=== PATIENT | female | born 1955 | race African-American/Black ===

== ENCOUNTER 2018-11-21 10:25 | Emergency (ER) | payer MEDICARE, MEDICAID ==
[2018-11-21 11:10] LABS: #Basophils 0.1 thou/uL (0.0-0.2); #Eosinphils 0.4 thou/uL (0.0-0.7); #Lymphocytes 2.6 thou/uL (1.20-3.40); #Monocytes 0.6 thou/uL (0.11-0.59); #Neutrophils 4.3 thou/uL (1.40-6.50); %Eosinophils 5.6 % (0.0-10.0); %Lymphocytes 32.4 % (21.0-51.0); %Monocytes 7.7 % (0.0-10.0); %Neutrophils 53.3 % (42.0-75.0); Hemoglobin 11.1 g/dL (12.0-16.0); Mean Corpuscular HGB CONC 31.7 g/dL (32.0-36.0); Mean Corpuscular Hemoglobin 28.6 pg (27.0-31.0); Mean Corpuscular Volume 90.3 fL (78.0-98.0); Mean Platelet Volume 7.6 fL (7.4-10.4); Platelet Count 196 thou/uL (130-400); RBC Distribution Width 15.2 % (11.5-14.5); Red Blood Cell (RBC) Count 3.87 mill/uL (4.20-5.40)
[2018-11-21 11:34] LABS: ALT (SGPT) Less than 7 U/L (8-55); AST (SGOT) 7 U/L (5-34); Albumin 3.6 g/dL (3.4-4.8); Alkaline Phosphatase 64 U/L (40-150); Anion Gap 9 mmol/L (10-20); BUN (Urea Nitrogen) 15 mg/dL (9.8-20.1); Bilirubin, Total 0.3 mg/dL (0.2-1.2); Calc. Creatinine Clearance 0 mL/min (70-130); Calcium 9.7 mg/dL (7.8-10.44); Carbon Dioxide 28 mmol/L (23-31); Chloride 108 mmol/L (98-107); Estimated GFR-MDRD 74; Glucose 97 mg/dL (80-115); Potassium 3.8 mmol/L (3.5-5.1); Protein, Total 6.6 g/dL (6.0-8.3); Sodium 141 mmol/L (136-145)
--- NOTE | 2018-11-21 12:30 | ULT ---
EXAM: Right upper extremity venous ultrasound HISTORY: Right upper extremity pain and edema after a dog bite on October 10, 2018 COMPARISON: None TECHNIQUE: Multiplanar grayscale and color Doppler images were obtained in a right upper extremity ve nous ultrasound. Spectral analysis of the Doppler waveforms were performed. FINDINGS: The internal jugular vein demonstrates normal compression and flow without evidence of thrombus. The subclavian vein demonstrates normal flow and augmentation without evidence of thrombus. The axillary and brachial veins demonstrate normal compression, flow, and augmentation without eviden ce of thrombus. The venous structures distal to the elbow are patent without thrombus. The cephalic and basilic veins are patent. IMPRESSION: No evidence of DVT.
[2018-11-21] MEDS ORDERED: HYDROcodone/Acetaminophen 10/325 mg Tablet ONE (12:31)
== END 2018-11-21 14:10 | disposition home or self-care (01) ==
LOC: ERS 10:25
DX: M79.89 Other specified soft tissue disorders (principal); I10 Essential (primary) hypertension; M19.90 Unspecified osteoarthritis, unspecified site; Z87.891 Personal history of nicotine dependence; Z79.1 Long term (current) use of non-steroidal anti-inflammatories (NSAID); Z79.899 Other long term (current) drug therapy
CPT/HCPCS: 36415; 80053; 83605; 85025

== ENCOUNTER 2018-12-24 23:55 | Observation (INO) | payer MEDICARE, MEDICAID ==
[2018-12-25 01:37] LABS: #Basophils 0.1 thou/uL (0.0-0.2); #Eosinphils 0.1 thou/uL (0.0-0.7); #Monocytes 0.8 thou/uL (0.11-0.59); #Neutrophils 7.6 thou/uL (1.40-6.50); %Basophils 0.6 % (0.0-1.0); %Eosinophils 1.3 % (0.0-10.0); %Monocytes 6.6 % (0.0-10.0); %Neutrophils 65.5 % (42.0-75.0); Hemoglobin 11.1 g/dL (12.0-16.0); Mean Corpuscular HGB CONC 34.7 g/dL (32.0-36.0); Mean Corpuscular Hemoglobin 30.5 pg (27.0-31.0); Mean Platelet Volume 8.3 fL (7.4-10.4); Platelet Count 212 thou/uL (130-400); RBC Distribution Width 15.1 % (11.5-14.5); Red Blood Cell (RBC) Count 3.63 mill/uL (4.20-5.40); White Blood Cell (WBC) Count 11.5 thou/uL (4.8-10.8)
[2018-12-25 01:57] LABS: ALT (SGPT) 18 U/L (8-55); AST (SGOT) 15 U/L (5-34); Albumin 3.6 g/dL (3.4-4.8); Alkaline Phosphatase 68 U/L (40-150); Anion Gap 15 mmol/L (10-20); BUN (Urea Nitrogen) 28 mg/dL (9.8-20.1); Bilirubin, Total 0.2 mg/dL (0.2-1.2); Calc. Creatinine Clearance 0 mL/min (70-130); Calcium 9.4 mg/dL (7.8-10.44); Carbon Dioxide 20 mmol/L (23-31); Chloride 107 mmol/L (98-107); Estimated GFR-MDRD 50; Globulin 3.5 g/dL (2.4-3.5); Glucose 112 mg/dL (80-115); Potassium 4.2 mmol/L (3.5-5.1); Protein, Total 7.1 g/dL (6.0-8.3); Sodium 138 mmol/L (136-145)
[2018-12-25] MEDS ORDERED: Bisacodyl 5 MG TAB PO PRN (03:23)
[2018-12-25] MEDS ORDERED: Acetaminophen 325 MG TAB PO PRN (03:23)
[2018-12-25] MEDS ORDERED: Senokot S 8.6-50 MG TAB PO PRN (03:23)
[2018-12-25] MEDS: Sodium Chloride 0.9% 1,000 ML IV SCH (05:28)
[2018-12-25 05:31] LABS: #Eosinphils 0.1 thou/uL (0.0-0.7); #Monocytes 0.5 thou/uL (0.11-0.59); #Neutrophils 4.3 thou/uL (1.40-6.50); %Basophils 0.5 % (0.0-1.0); %Eosinophils 1.4 % (0.0-10.0); %Lymphocytes 38.1 % (21.0-51.0); %Monocytes 6.1 % (0.0-10.0); %Neutrophils 53.9 % (42.0-75.0); Hemoglobin 11.5 g/dL (12.0-16.0); Mean Corpuscular Hemoglobin 29.4 pg (27.0-31.0); Mean Corpuscular Volume 89.1 fL (78.0-98.0); Mean Platelet Volume 8.8 fL (7.4-10.4); Platelet Count 224 thou/uL (130-400); RBC Distribution Width 15.2 % (11.5-14.5); Red Blood Cell (RBC) Count 3.91 mill/uL (4.20-5.40); White Blood Cell (WBC) Count 7.9 thou/uL (4.8-10.8)
[2018-12-25 05:47] LABS: Anion Gap 14 mmol/L (10-20); BUN (Urea Nitrogen) 25 mg/dL (9.8-20.1); Calc. Creatinine Clearance 49 mL/min (70-130); Calcium 9.4 mg/dL (7.8-10.44); Carbon Dioxide 20 mmol/L (23-31); Chloride 109 mmol/L (98-107); Estimated GFR-MDRD 70; Glucose 101 mg/dL (80-115); Potassium 4.3 mmol/L (3.5-5.1); Sodium 139 mmol/L (136-145)
--- NOTE | 2018-12-25 05:49 | PDOC.EVN ---
Event Note - Event Note Event Note: spoke with nurse who stated that pt is taking norvac, hctz for her bp. When i interviewed the pt, her brother stated that she takes clonidine bid. I am not sure if she is taking too many bp meds.
[2018-12-25 05:50] LABS: Troponin I Less than 0.010 ng/mL (< 0.028)
--- NOTE | 2018-12-25 05:58 | HP ---
CHIEF COMPLAINT: Dizziness, lightheadedness. HISTORY OF PRESENT ILLNESS: The patient is a 63-year-old female with past medical history of hypertension, who initially presented to the hospital with dizziness and was found to be hypotensive. The patient stated that she felt dizzy earlier yesterday and she tried to get up where she fell, but did not pass out. At this time, her brother took her blood pressure, which was 65/50. At this time, EMS was called for further evaluation. The patient states that she takes clonidine 0.1 mg b.i.d. as a scheduled dose and she states that she has been on this for a long period of time from her pain management doctor. She denies any fevers or chills, any nausea, vomiting, or diarrhea. The patient states that she recently was attacked by a pit bull. This was in September and had to be taken to [facility] for extensive surgery. She at that time stayed there in the hospital for about 3 weeks and then was discharged home. She then followed up with her doctor at [facility] on December 11 and was told that the wound did not appear to be infected, so at this time she was asked to come in to the hospital at [facility]. The patient states that she had two I and D of her right arm and initially they thought it was infected; however, her blood cultures were normal. This is according to the patient. She was sent home with oral antibiotics. She does not recall the name of the antibiotics. She denies any recent fevers or chills, any recent nausea, vomiting, or diarrhea. She currently has not set up any wound care. She states that her arm is dressed by her brother and she is supposed to get wound care and also PT for her right hand. REVIEW OF SYSTEMS: All negative except for the ones mentioned above in the HPI. PAST MEDICAL HISTORY: She has a history of hypertension. She has a history of arthritis, unclear about that. FAMILY HISTORY: No history of heart disease or cancer. SOCIAL HISTORY: She is a former drug user and also a former smoker. Denies any alcohol use. She lives with her brother and she is a full code. PAST SURGICAL HISTORY: She has had extensive surgery on her right arm, left hand for graft and her left thigh. She also has had a cyst removed in the back of the head in 2016. ALLERGIES: SHE HAS NO KNOWN DRUG ALLERGIES. MEDICATIONS: Again, she does not have a list of her medications. PHYSICAL EXAMINATION: VITAL SIGNS: Temperature of 98.8, respiratory rate 18, pulse 61, and blood pressure 100/62. GENERAL: She is awake, alert, and oriented x3. Does not appear in distress. HEENT: Normocephalic, atraumatic. No lymphadenopathy noted. Pupils are equal and reactive to light. CV: S1 and S2 present. No murmurs, rubs, or gallops. LUNGS: Clear to auscultation. No rhonchi or wheezes noted. ABDOMEN: Soft and nontender. Bowel sounds are present x2. EXTREMITIES: No edema. Pedal pulses are present x2. NEUROVASCULAR: No focal deficits noted. SKIN: She has a wound that is dressed in her right hand. She is really unable to move her right fingers, which is at baseline according to her. On her left arm, she does have a significant wound. Also, she has a significant wound to her left thigh area. LABORATORY DATA: Laboratory results are as of the following; WBCs of 11.5, hemoglobin of 11.1, hematocrit of 32.0, platelets of 212. Chemistry; sodium of 138, potassium of 4.2, BUN of 20, creatinine of 1.30. Troponin x2 were negative. ASSESSMENT AND PLAN: The patient is a 63-year-old female, who presents to the hospital with complaints of dizziness. 1. Hypotension. I am not exactly sure why this patient is on clonidine and I am not sure if this is for her hypertension versus for opioid withdrawal. Currently, I have held her clonidine because of hypotension. We have given her some IV fluids in the ER and also I will continue some IV hydration. She feels a lot better. We will continue to monitor. 2. Acute kidney injury. The patient's creatinine is 1.3, which is elevated from her baseline in October. We will hydration and this is most likely transient from prerenal. 3. Significant wound to her right hand and her left thigh. I will get wound care and Case Management to get occupational therapy for her. She has an extensive wound. Also, we need to know what her antibiotics are to be restarted. She is supposed to be on 10 days of oral antibiotics. This is from her doctors at [facility]. 4. Deep venous thrombosis prophylaxis. The patient will be on SCDs. Job ID: [id number]
--- NOTE | 2018-12-25 07:34 | CT ---
PRELIMINARY REPORT/[facility]/EMERGENCY AFTER HOURS PROCEDURE: EXAM: CT Head Without Contrast EXAM DATE/TIME: 12/25/2018 1:06 AM CLINICAL HISTORY: 63 years old, female; Injury or trauma; Initial encounter; Abrasion; Not specified; Patient HX: 63 y/ o F presents to ED via EMS transport for hypotension. PT describes that she suddenly became very dizzy on standing, first at approx 1600 last evening, with severity such that she fell. PT then had t wo additional similar episodes as the night progressed, also falling with both. TECHNIQUE: Imaging protocol: Computed tomography images of the head without contrast. COMPARISON: No relevant prior studies available. FINDINGS: Brain: Normal. No hemorrhage. Unremarkable white matter. No mass effect. Ventricles: Normal. No ventriculomegaly. Bones/joints: Unremarkable. No acute fracture. Sinuses: Visualized sinuses are unremarkable. No fluid levels. Mastoid air cells: Visualized mastoid air cells are well aerated. No mastoid effusion. Soft tissues: Unremarkable. IMPRESSION: No acute intracranial hemorrhage. Thank you for allowing us to participate in the care of your patient. Dictated and Authenticated by: Ned Berger MD 12/25/2018 1:22 AM Central Time ([place] & [place]) FINAL REPORT EMERGENCY AFTER HOURS CT BRAIN WITHOUT CONTRAST: FINDINGS/IMPRESSION: I agree with the preliminary report given by Dr. Ned Berger of [facility]. Transcribed Date/Time: 12/25/2018 7:44 AM
--- NOTE | 2018-12-25 07:43 | RAD ---
EXAM: Single view of the chest HISTORY: Hypotension COMPARISON: None FINDINGS: Single view of the chest shows a normal sized cardiomediastinal silhouette. There is no derek dence of consolidation, mass, or pleural effusion. The bones are unremarkable. IMPRESSION: No evidence of acute cardiopulmonary disease
[2018-12-25 08:08] LABS: Troponin I Less than 0.010 ng/mL (< 0.028)
[2018-12-25] MEDS ORDERED: Ergocalciferol 1.25 MG(50,000 UNITS) CAP PO SCH (09:00)
[2018-12-25] MEDS: Amoxicillin/Potassium Clav 875 MG TAB PO SCH ×2 (09:17→20:06)
[2018-12-25] MEDS: Aspirin 325 mg Enteric Coated Tablet PO SCH (09:19)
[2018-12-25] MEDS: Gabapentin 300 MG CAP PO SCH ×3 (09:19→20:06)
[2018-12-25] MEDS: traMADol HCl 50 MG TAB PO PRN ×2 (09:20→20:03)
[2018-12-25] MEDS ORDERED: Sodium Chloride 0.65% Nasal 44 ML BOT EA NARE PRN (09:48)
[2018-12-25] MEDS ORDERED: Artificial Tears 18 DROP/0.9 ML EA EYE PRN (09:48)
[2018-12-25] MEDS ORDERED: Ondansetron PF 4 MG/2 ML Vial IVP PRN (09:48)
[2018-12-25] MEDS ORDERED: HYDROcodone/Acetaminophen 5/325 mg Tablet PO PRN (09:48)
[2018-12-25] MEDS ORDERED: Temazepam 15 MG CAP PO PRN (09:48)
[2018-12-25] MEDS ORDERED: Ondansetron ODT 4 MG TAB PO PRN (09:48)
[2018-12-25] MEDS ORDERED: Calcium Carbonate 500 MG ChewTAB PO PRN (09:48)
[2018-12-25] MEDS ORDERED: hydrALAZINE 20 MG/ML VIAL SLOW IVP PRN (09:48)
[2018-12-25] MEDS ORDERED: Diabetic Tussin 200 MG/10 ML UDCUP PO PRN (09:48)
[2018-12-25] MEDS ORDERED: Loperamide HCl 2 MG CAP PO PRN (09:48)
[2018-12-25] MEDS ORDERED: Loratadine 10 MG TAB PO PRN (09:48)
[2018-12-25] MEDS ORDERED: Cepastat Lozenges 1 LOZ PO PRN (09:48)
--- NOTE | 2018-12-25 10:46 | PDOC.HOSPP ---
- Subjective Subjective: Patient seen and examined. No new complaints. No overnight events - Objective Vital Signs & Weight: Vital Signs (12 hours) Temp Pulse Resp BP Pulse Ox 12/25/18 07:28 97.8 F 70 16 104/56 L 100 12/25/18 04:30 97.7 F 64 16 101/56 L 100 Weight Weight 114 lb 4.8 oz I&O: 12/24/18 12/25/18 12/26/18 06:59 06:59 06:59 Output Total 475 Balance -475 Result Diagrams: 12/25/18 04:50 12/25/18 04:50 EKG Reviewed by me: Yes ROS - Review of Systems All systems: All other ROS were reviewed and found negative. Constitutional: denies: fever, chills, sweats, weakness, malaise, other ENT: denies: ear pain, ear discharge, nose pain, nose discharge, nose congestion , mouth pain, mouth swelling, throat pain, throat swelling, other Respiratory: denies: cough, dry, shortness of breath, hemoptysis, SOB with excertion, pleuritic pain, sputum, wheezing, other Cardiovascular: denies: chest pain, palpitations, orthopnea, paroxysmal noc. dyspnea, edema, light headedness, other Gastrointestinal: denies: nausea, vomitting, abdominal pain, diarrhea, constipation, melena, hematochezia, other Genitourinary: denies: dysuria, frequency, incontinence, hematuria, retention, other Musculoskeletal: denies: neck pain, shoulder pain, arm pain, back pain, hand pain, leg pain, foot pain, other - Medication Medications: Active Medications Generic Name Dose Route Start Last Admin Trade Name Freq PRN Reason Stop Dose Admin Amoxicillin/Clavulanate Potassium 875 mg 12/25/18 09:00 12/25/18 09:17 Augmentin PO 875 mg BID JEREMIAS Administration Aspirin 325 mg 12/25/18 09:00 12/25/18 09:19 Ecotrin PO 325 mg DAILY JEREMIAS Administration Ergocalciferol 1.25 mg 12/25/18 09:00 12/25/18 09:19 Drisdol PO 1.25 mg Q7D JEREMIAS Administration Gabapentin 300 mg 12/25/18 09:00 12/25/18 09:19 Neurontin PO 300 mg TID JEREMIAS Administration Sodium Chloride 1,000 mls @ 50 mls/hr 12/25/18 03:30 12/25/18 05:28 Normal Saline 0.9% IV 1,000 mls .Q20H JEREMIAS Administration Pantoprazole Sodium 40 mg 12/25/18 09:00 12/25/18 09:19 Protonix PO 40 mg DAILY JEREMIAS Administration Sodium Chloride 10 ml 12/25/18 09:00 12/25/18 09:19 Flush - Normal Saline IVF Not Given Q12HR JEREMIAS Sodium Chloride 10 ml 12/25/18 03:27 12/25/18 05:28 Flush - Normal Saline IVF 10 ml PRN PRN Administration Saline Flush Tramadol HCl 50 mg 12/25/18 05:46 12/25/18 09:20 Ultram PO 50 mg Q8H PRN Administration Moderate Pain (4-6) - Exam NAD, awake alert Eye: PERRL, anicteric sclera ENT: normocephalic atraumatic, no oropharyngeal lesions Neck: supple, symmetric, no JVD, no Thyromegaly Heart: RRR, no murmur, no gallops, no rubs Respiratory: CTAB, no wheezes, no rales, no ronchi Gastrointestinal: soft, non-tender, non-distended, normal bowel sounds Extremities: no cyanosis, no clubbing, no edema (wound noted over left thigh and right UE, with dressing) Skin: normal turgor, no lesions, no rashes Neurological: CN's grossly intact, normal sensation to touch, no focal deficits Musculoskeletal: normal tone, normal strength, no muscle wasting Psychiatric: normal affect, normal behavior, A&O x 3 Hosp A/P (1) BRIANA (acute kidney injury) Code(s): N17.9 - ACUTE KIDNEY FAILURE, UNSPECIFIED Status: Resolved (2) Dizziness Code(s): R42 - DIZZINESS AND GIDDINESS Status: Resolved (3) Hypotension Status: Resolved (4) Protein-calorie malnutrition, moderate Code(s): E44.0 - MODERATE PROTEIN-CALORIE MALNUTRITION Status: Acute (5) Anemia, normocytic normochromic Code(s): D64.9 - ANEMIA, UNSPECIFIED Status: Chronic (6) Open wound of hand Code(s): S61.409A - UNSPECIFIED OPEN WOUND OF UNSPECIFIED HAND, INIT ENCNTR Status: Chronic (7) Wound of thigh Code(s): S71.109A - UNSPECIFIED OPEN WOUND, UNSPECIFIED THIGH, INITIAL ENCOUNTER Status: Chronic - Plan old records reviewed/req, continue antibiotics, PT/OT, social worker masters continue IVF wound care outpatient case manager to arrange outpt wound care and home health medication reviewed as below symptomatic treatment home medication reconciled nutritional support
[2018-12-26] MEDS: Sodium Chloride 0.9% 1,000 ML IV SCH (02:18)
[2018-12-26 04:53] VITALS: BMI 20.9
[2018-12-26] MEDS: traMADol HCl 50 MG TAB PO PRN (06:12)
[2018-12-26 08:13] VITALS: TEMP 98.4
[2018-12-26] MEDS: Amoxicillin/Potassium Clav 875 MG TAB PO SCH (08:25)
[2018-12-26] MEDS: Aspirin 325 mg Enteric Coated Tablet PO SCH (08:26)
[2018-12-26] MEDS: Gabapentin 300 MG CAP PO SCH (08:26)
--- NOTE | 2018-12-26 11:15 | DIS ---
DATE OF ADMISSION: 12/25/2018 DATE OF DISCHARGE: 12/26/2018 PRIMARY CARE PHYSICIAN: Jacob Call Admission. DISCHARGE DISPOSITION: Home with home health. PRIMARY DISCHARGE DIAGNOSES: 1. Hypotension due to over-medication. 2. Dizziness due to hypotension. 3. Acute kidney injury, resolved. SECONDARY DISCHARGE DIAGNOSES: 1. Moderate protein-calorie malnutrition. 2. Normocytic normochromic anemia. 3. History of pit bull bite with wound over thigh and hand. PRIMARY PROCEDURE/OPERATION: None. RADIOLOGIST INVESTIGATION: CT of brain negative. Chest x-ray normal. SIGNIFICANT LABORATORY DATA: Hemoglobin 11.5. Creatinine 0.97. LFT normal. Troponin negative. BNP normal. DISCHARGE MEDICATIONS: 1. Augmentin 875 mg twice daily. 2. Aspirin 325 mg p.o. daily. 3. Vitamin D2 of 50,000 units p.o. daily. 4. Gabapentin 300 mg t.i.d. 5. Omeprazole 20 mg p.o. daily. 6. Tramadol 50 mg q.8 hourly p.r.n. 7. Amlodipine 5 mg p.o. daily. CONTRAINDICATION: None. CODE STATUS: Full code. INPATIENT TAPPING MACHINE OPERATOR: None. ALLERGIES: NO KNOWN DRUG ALLERGIES. DISCHARGE PLAN: Posthospital, the patient will follow up with primary care physician. The patient has appointment with a hand surgeon at [facility]. The patient will follow up with [facility]. HOSPITAL COURSE: This is a 63-year-old female, who was brought to hospital because the patient was feeling dizzy, weak, and lightheaded. She was having low blood pressure. She was taking bunch of blood pressure medication including high dose of amlodipine, clonidine, and hydrochlorothiazide that might have contributed to her hypotension. Hypotension resolved with IV fluid. She had mild acute kidney injury, which was also improved with IV fluid. This patient had recent pit bull bite and subsequently, she required [facility] hospitalization for surgery and she is recovering from that. She is currently living with her brother, who is doing wound care, we arranged home health for better wound care at home. She has appointment and followup with [facility] regarding her chronic wound. This patient is going to stay in [place], [place] with her brother for a while and that is why we advised to get followup appointment with primary care physician for routine problem. The patient's family member also advised to check blood pressure at home and hold amlodipine if blood pressure is less than 120. During this admission, we discontinued all other blood pressure medication and only we discharged with amlodipine 5 mg p.o. daily. While in hospital, she was given nutritional support. I have seen and examined the patient bedside today. All review of systems reviewed with her and negative. Overall, the patient is medically stable for discharge. Her examination is not changed from yesterday. Job ID: [id number]
[2018-12-26 11:56] VITALS: BP 138/68
== END 2018-12-26 12:01 | disposition home health service (06) ==
LOC: ERS 23:55 → 2SW 12-25 04:27
PROVIDERS: ADMIT Internal Medicine; ATTEND Internal Medicine
DX: T46.5X1A Poisoning by other antihypertensive drugs, accidental (unintentional), initial encounter (principal); I95.9 Hypotension, unspecified; N17.9 Acute kidney failure, unspecified; I10 Essential (primary) hypertension; E44.0 Moderate protein-calorie malnutrition; D64.9 Anemia, unspecified; M19.90 Unspecified osteoarthritis, unspecified site; Z87.891 Personal history of nicotine dependence; Z79.82 Long term (current) use of aspirin; Z79.899 Other long term (current) drug therapy; Z68.21 Body mass index [BMI] 21.0-21.9, adult
CPT/HCPCS: 70450; 71045; 80048; 80053; 83880; 84484 ×2; 85025 ×2; 96360; 96361 ×3; 97116; 97139 ×4; 99285; G0378 ×2; 36415

== ENCOUNTER 2019-04-10 14:37 | Outpatient (CLI) | payer MEDICARE, MEDICAID ==
--- NOTE | 2019-04-10 15:00 | MMO ---
Bilateral MAMMO Bilat Screen [facility]. CLINICAL HISTORY: Patient is 63 years old and is seen for screening. The patient has no family history of breast cancer. The patient has no personal history of cancer. VIEWS: The views performed were: bilateral craniocaudal with tomosynthesis and bilateral mediolateral oblique with tomosynthesis. This study has been interpreted with the assistance of computer-aided detection. MAMMOGRAM FINDINGS: There are scattered fibroglandular densities. There are vascular calcifications seen in both breasts. There are no suspicious masses, suspicious calcifications, or new areas of architectural distortion. IMPRESSION: A ROUTINE FOLLOW-UP MAMMOGRAM IN 1 YEAR IS RECOMMENDED. THE RESULTS OF THIS EXAM WERE SENT TO THE PATIENT. ACR BI-RADS Category 2 - Benign finding MAMMOGRAPHY NOTE: 1. A negative mammogram report should not delay a biopsy if a dominant of clinically suspicious mass is present. 2. Approximately 10% to 15% of breast cancers are not detected by mammography. 3. Adenosis and dense breasts may obscure an underlying neoplasm. Reported by: JOSE C SANDERSON MD Electonically Signed: [id number]
== END 2019-04-10 14:38 | disposition home or self-care (01) ==
LOC: BICMAMMO 14:37
PROVIDERS: ATTEND Internal Medicine
DX: Z12.31 Encounter for screening mammogram for malignant neoplasm of breast (principal)
CPT/HCPCS: 77063; 77067

== ENCOUNTER 2020-08-08 10:52 | Outpatient (CLI) | payer MEDICARE, MEDICAID | END 2020-08-08 10:53 | disposition home or self-care (01) | LOC: BICMAMMO 10:52 | PROVIDERS: ATTEND Nurse Practitioner Family | DX: Z13.820 Encounter for screening for osteoporosis (principal); Z78.0 Asymptomatic menopausal state | CPT/HCPCS: 77080 ==

== ENCOUNTER 2020-08-14 09:53 | Outpatient (CLI) | payer MEDICARE, MEDICAID | END 2020-08-14 09:54 | disposition home or self-care (01) | LOC: BICULT 09:53 | PROVIDERS: ATTEND Nurse Practitioner Family | DX: R10.12 Left upper quadrant pain (principal) | CPT/HCPCS: 76856; 93975 ==

== ENCOUNTER 2020-08-26 12:27 | Outpatient (CLI) | payer MEDICARE, MEDICAID | END 2020-08-26 12:28 | disposition home or self-care (01) | LOC: BICRAD 12:27 | PROVIDERS: ATTEND Nurse Practitioner Family | DX: M25.561 Pain in right knee (principal); M54.9 Dorsalgia, unspecified; M47.816 Spondylosis without myelopathy or radiculopathy, lumbar region; M43.17 Spondylolisthesis, lumbosacral region; M17.0 Bilateral primary osteoarthritis of knee | CPT/HCPCS: 72100 ==

== ENCOUNTER 2020-12-06 18:47 | Observation (INO) | payer MEDICARE, MEDICAID ==
[2020-12-06 19:31] LABS: #Basophils 0.1 thou/uL (0.0-0.2); #Eosinphils 0.1 thou/uL (0.0-0.7); #Lymphocytes 0.9 thou/uL (1.20-3.40); #Monocytes 0.5 thou/uL (0.11-0.59); #Neutrophils 9.5 thou/uL (1.40-6.50); %Basophils 0.6 % (0.0-1.0); %Eosinophils 1.2 % (0.0-10.0); %Lymphocytes 8.1 % (21.0-51.0); %Monocytes 4.3 % (0.0-10.0); %Neutrophils 85.9 % (42.0-75.0); Hemoglobin 13.3 g/dL (12.0-16.0); Mean Corpuscular HGB CONC 32.5 g/dL (32.0-36.0); Mean Corpuscular Hemoglobin 28.9 pg (27.0-31.0); Mean Corpuscular Volume 89.1 fL (78.0-98.0); Mean Platelet Volume 9.3 fL (7.4-10.4); Platelet Count 170 thou/uL (130-400); RBC Distribution Width 14.9 % (11.5-14.5); White Blood Cell (WBC) Count 11.1 thou/uL (4.8-10.8)
[2020-12-06 19:49] LABS: ALT (SGPT) 32 U/L (8-55); AST (SGOT) 30 U/L (5-34); Albumin 4.2 g/dL (3.4-4.8); Alkaline Phosphatase 103 U/L (40-110); Anion Gap 15 mmol/L (10-20); BUN (Urea Nitrogen) 19 mg/dL (9.8-20.1); Bilirubin, Total 0.5 mg/dL (0.2-1.2); Calc. Creatinine Clearance 0 mL/min (70-130); Carbon Dioxide 18 mmol/L (23-31); Chloride 106 mmol/L (98-107); Globulin 3.9 g/dL (2.4-3.5); Glucose 137 mg/dL (80-115); Potassium 4.2 mmol/L (3.5-5.1); Protein, Total 8.1 g/dL (5.8-8.1); Sodium 135 mmol/L (136-145)
[2020-12-06] MEDS ORDERED: Acetaminophen 500 MG TAB ONE (20:00)
[2020-12-06 21:08] LABS: Bilirubin Negative (Negative); Blood, Urine Negative (Negative); Clarity Clear (Clear); Glucose, Urine (Dipstick) Normal (Negative); Ketone, Urine Negative (Negative); Leukocyte Negative Leu/uL (Negative); Nitrite Negative (Negative); Protein, Urine (Dipstick) Negative (Neg-Trace); Specific Gravity, Urine 1.014 (1.002-1.036); Urobilinogen Normal mg/dL (Less than 2)
[2020-12-06 21:24] LABS: SARS-CoV-2 NAA Rapid Test Not Detected (NotDetected)
[2020-12-06] MEDS ORDERED: Vancomycin 1 GM/200 ML BAG ONE (22:37)
[2020-12-06] MEDS ORDERED: Cefepime 2 GM VIAL ONE (22:37)
[2020-12-06 23:07] LABS: Lactic Acid 1.6 mmol/L (0.5-2.2)
[2020-12-07 02:03] VITALS: BMI 25.8
[2020-12-07] MEDS ORDERED: Ondansetron PF 4 MG/2 ML Vial IVP PRN (04:09)
[2020-12-07] MEDS ORDERED: HYDROcodone/Acetaminophen 5/325 mg Tablet PO PRN (04:09)
[2020-12-07] MEDS ORDERED: Acetaminophen 325 MG TAB PO PRN (04:09)
[2020-12-07] MEDS ORDERED: Sodium Chloride 0.9% 1,000 ML IV SCH (04:15)
[2020-12-07 06:29] LABS: #Eosinphils 0.2 thou/uL (0.0-0.7); #Lymphocytes 1.3 thou/uL (1.20-3.40); #Monocytes 0.7 thou/uL (0.11-0.59); #Neutrophils 9.5 thou/uL (1.40-6.50); %Basophils 0.1 % (0.0-1.0); %Eosinophils 2.1 % (0.0-10.0); %Lymphocytes 11.2 % (21.0-51.0); %Monocytes 5.7 % (0.0-10.0); %Neutrophils 80.9 % (42.0-75.0); Hemoglobin 12.2 g/dL (12.0-16.0); Mean Corpuscular HGB CONC 31.4 g/dL (32.0-36.0); Mean Corpuscular Hemoglobin 28.1 pg (27.0-31.0); Mean Corpuscular Volume 89.4 fL (78.0-98.0); Mean Platelet Volume 9.3 fL (7.4-10.4); Platelet Count 167 thou/uL (130-400); RBC Distribution Width 14.9 % (11.5-14.5); Red Blood Cell (RBC) Count 4.36 mill/uL (4.20-5.40); White Blood Cell (WBC) Count 11.8 thou/uL (4.8-10.8)
[2020-12-07 06:48] LABS: Anion Gap 12 mmol/L (10-20); BUN (Urea Nitrogen) 12 mg/dL (9.8-20.1); Calc. Creatinine Clearance 86 mL/min (70-130); Calcium 8.8 mg/dL (7.8-10.44); Carbon Dioxide 20 mmol/L (23-31); Chloride 108 mmol/L (98-107); Glucose 114 mg/dL (80-115); Potassium 3.9 mmol/L (3.5-5.1); Sodium 136 mmol/L (136-145)
[2020-12-07] MEDS ORDERED: Iopamidol-370 76% 500 ML 1 ML ONE (09:17)
[2020-12-07] MEDS ORDERED: Cefepime 2 GM VIAL ONE (10:53)
[2020-12-07] MEDS ORDERED: Cefepime 2 GM in Sodium Chloride 0.9% 100 ML IVPB SCH (11:00)
[2020-12-07] MEDS ORDERED: Vancomycin 1.5 GRAM/300 ML BAG 1.5 GM in Premix Bag 1 BAG IVPB SCH (16:00)
== END 2020-12-07 12:40 | disposition home or self-care (01) ==
LOC: ERS 18:47 → ERHOLD 23:17
PROVIDERS: ADMIT Internal Medicine; ATTEND Internal Medicine
DX: R50.9 Fever, unspecified (principal); R52 Pain, unspecified; E87.2 Acidosis; I10 Essential (primary) hypertension; M19.90 Unspecified osteoarthritis, unspecified site; Z87.891 Personal history of nicotine dependence; Z79.2 Long term (current) use of antibiotics; Z79.82 Long term (current) use of aspirin; Z79.899 Other long term (current) drug therapy; Z98.890 Other specified postprocedural states; Z20.822 Contact with and (suspected) exposure to COVID-19
CPT/HCPCS: 0240U; 71045; 73090; 73201; 80048; 80053; 81003; 83605; 85025 ×2; 87040; 87086; 93005; 96365; 96366; 96367; 96376; 99285; G0378 ×2; 36415; J0692; J3370; J3490; Q9967

== ENCOUNTER 2021-04-22 09:56 | Emergency (ER) | payer MEDICAID, MEDICARE ==
[2021-04-22] MEDS ORDERED: HYDROcodone/Acetaminophen 10/325 mg Tablet ONE (12:05)
== END 2021-04-22 12:17 | disposition home or self-care (01) ==
LOC: ERS 09:56
DX: G89.29 Other chronic pain (principal); M25.552 Pain in left hip; M25.551 Pain in right hip; M79.605 Pain in left leg; M79.604 Pain in right leg; I10 Essential (primary) hypertension; E78.5 Hyperlipidemia, unspecified; Z87.891 Personal history of nicotine dependence
CPT/HCPCS: 99283

== ENCOUNTER 2021-05-18 10:39 | Outpatient (CLI) | payer MEDICARE, OTHER | END 2021-05-18 10:40 | disposition home or self-care (01) | LOC: BICRAD 10:39 | PROVIDERS: ATTEND Nurse Practitioner Family | DX: M25.551 Pain in right hip (principal); M25.552 Pain in left hip; G89.29 Other chronic pain | CPT/HCPCS: 72220; 73522 ==

== ENCOUNTER 2021-07-21 09:32 | Outpatient (CLI) | payer MEDICARE, MEDICAID | END 2021-07-21 09:33 | disposition home or self-care (01) | LOC: MRI 09:32 | PROVIDERS: ATTEND Nurse Practitioner Family | DX: M47.26 Other spondylosis with radiculopathy, lumbar region (principal) | CPT/HCPCS: 72148 ==

== ENCOUNTER 2021-11-20 13:21 | Emergency (ER) | payer OTHER, MEDICAID | END 2021-11-20 15:05 | disposition home or self-care (01) | LOC: ERS 13:21 | DX: M54.41 Lumbago with sciatica, right side (principal); I10 Essential (primary) hypertension; Z87.891 Personal history of nicotine dependence; Z79.899 Other long term (current) drug therapy | CPT/HCPCS: 72128; 72131 ==

== ENCOUNTER 2021-11-25 11:33 | Outpatient (CLI) | payer OTHER, MEDICAID | END 2021-11-25 11:34 | disposition home or self-care (01) | LOC: LABBT 11:33 | PROVIDERS: ATTEND Internal Medicine Gastroenterology | DX: Z01.812 Encounter for preprocedural laboratory examination (principal); Z20.822 Contact with and (suspected) exposure to COVID-19 | CPT/HCPCS: 87811 ==

== ENCOUNTER 2021-11-26 12:13 | Day surgery (SDC) | payer OTHER, MEDICAID ==
[2021-11-24 11:37] VITALS: BMI 36.0
[2021-11-26] MEDS ORDERED: Ketorolac Tromethamine 30 MG/ML VIAL ONE (13:56)
[2021-11-26] MEDS ORDERED: PROPOFOL 200 MG/20 ML VIAL ONE (13:56)
== END 2021-11-26 15:10 | disposition home or self-care (01) ==
LOC: SDC 12:13
PROVIDERS: ATTEND Internal Medicine Gastroenterology
PROC: 0DBN8ZX Excision of Sigmoid Colon, Via Natural or Artificial Opening Endoscopic, Diagnostic (ICD-10-PCS; principal; 2021-11-26)
PROC: 0DD78ZX Extraction of Stomach, Pylorus, Via Natural or Artificial Opening Endoscopic, Diagnostic (ICD-10-PCS; 2021-11-26)
PROC: 0D757ZZ Dilation of Esophagus, Via Natural or Artificial Opening (ICD-10-PCS; 2021-11-26)
DX: Z12.11 Encounter for screening for malignant neoplasm of colon (principal); K63.5 Polyp of colon; K20.90 Esophagitis, unspecified without bleeding; K29.50 Unspecified chronic gastritis without bleeding; K31.89 Other diseases of stomach and duodenum; R13.10 Dysphagia, unspecified; K44.9 Diaphragmatic hernia without obstruction or gangrene; Q43.8 Other specified congenital malformations of intestine; K57.30 Diverticulosis of large intestine without perforation or abscess without bleeding; Z79.1 Long term (current) use of non-steroidal anti-inflammatories (NSAID); Z79.899 Other long term (current) drug therapy
CPT/HCPCS: 88305; 88342; J1885; J2704

== ENCOUNTER 2021-11-27 14:20 | Outpatient (CLI) | payer MEDICARE, OTHER | END 2021-11-27 14:21 | disposition home or self-care (01) | LOC: BICCT 14:20 | PROVIDERS: ATTEND Surgery | DX: M43.16 Spondylolisthesis, lumbar region (principal); M51.17 Intervertebral disc disorders with radiculopathy, lumbosacral region; M48.07 Spinal stenosis, lumbosacral region; M43.17 Spondylolisthesis, lumbosacral region; M47.26 Other spondylosis with radiculopathy, lumbar region; M47.27 Other spondylosis with radiculopathy, lumbosacral region | CPT/HCPCS: 72110; 72131 ==

== ENCOUNTER 2022-01-21 14:51 | Outpatient (CLI) | payer OTHER | END 2022-01-21 14:52 | disposition home or self-care (01) | LOC: LABBT 14:51 | PROVIDERS: ATTEND Surgery | DX: Z01.810 Encounter for preprocedural cardiovascular examination (principal); M48.062 Spinal stenosis, lumbar region with neurogenic claudication; M43.16 Spondylolisthesis, lumbar region | CPT/HCPCS: 93005; 93010 ==

== ENCOUNTER 2022-01-26 06:03 | Inpatient (IN) | payer OTHER, MEDICAID ==
[2022-01-21 16:30] LABS: Hemoglobin 13.1 g/dL (12.0-15.5); Mean Corpuscular HGB CONC 32.6 g/dL (32.0-36.0); Mean Corpuscular Hemoglobin 28.1 pg (27.0-33.0); Mean Corpuscular Volume 86.3 fl (81.6-98.3); Mean Platelet Volume 11.1 fl (7.4-10.4); Platelet Count 194 10x3/uL (150-450); RBC Distribution Width 15.6 % (11.5-14.5); Red Blood Cell (RBC) Count 4.66 10x6/uL (3.90-5.03); White Blood Cell (WBC) Count 8.3 10x3/uL (3.5-10.5)
[2022-01-21 16:40] LABS: PTT 24.6 sec (22.0-33.0); Prothrombin Time 10.4 sec (9.5-12.1)
[2022-01-21 17:08] LABS: Anion Gap 13 mmol/L (10-20); BUN (Urea Nitrogen) 16 mg/dL (9.8-20.1); Calc. Creatinine Clearance 0 mL/min (70-130); Calcium 10.1 mg/dL (7.8-10.44); Carbon Dioxide 23 mmol/L (23-31); Chloride 108 mmol/L (98-107); Estimated GFR 77; Glucose 102 mg/dL (80-115); Potassium 3.6 mmol/L (3.5-5.1); Sodium 140 mmol/L (136-145)
[2022-01-22 11:47] VITALS: BMI 36.0
[2022-01-26] MEDS ORDERED: Thrombin 5000 UNITS/5 ML VIAL ONE (06:40)
[2022-01-26] MEDS ORDERED: Albumin 5% 500 ML ONE (07:12)
[2022-01-26] MEDS ORDERED: fentaNYL Citrate/PF 100 MCG/2 ML SYRINGE ONE (07:12)
[2022-01-26] MEDS ORDERED: Sodium Chloride 0.9% 100 ML ONE (07:17)
[2022-01-26] MEDS ORDERED: CEFAZOLIN 2 GM VIAL ONE (07:17)
[2022-01-26] MEDS ORDERED: ePHEDrine 50 MG/ML VIAL ONE (07:34)
[2022-01-26] MEDS ORDERED: Ondansetron PF 4 MG/2 ML Vial ONE (07:34)
[2022-01-26] MEDS ORDERED: Rocuronium Bromide 10 MG/ML (10ML VIAL) ONE (07:34)
[2022-01-26] MEDS ORDERED: Ketorolac Tromethamine 30 MG/ML VIAL ONE (07:34)
[2022-01-26] MEDS ORDERED: Glycopyrrolate 0.2 MG/ML 5 ML SYRINGE ONE (07:34)
[2022-01-26] MEDS ORDERED: Calcium Chloride 1 GM/10 ML Abboject SYRINGE ONE (07:34)
[2022-01-26] MEDS ORDERED: Neostigmine Methylsulfate 3 MG/3 ML SYRINGE ONE (07:34)
[2022-01-26] MEDS ORDERED: PROPOFOL 200 MG/20 ML VIAL ONE (07:34)
[2022-01-26] MEDS ORDERED: Lidocaine 1% MPF 2 ML VIAL ONE (07:34)
[2022-01-26] MEDS ORDERED: Labetalol HCl 100 MG/20 ML VIAL ONE (07:34)
[2022-01-26] MEDS ORDERED: Phenylephrine 10 MG/ML VIAL ONE (07:34)
[2022-01-26] MEDS ORDERED: Ondansetron PF 4 MG/2 ML Vial IVP PRN (11:30)
[2022-01-26] MEDS ORDERED: HYDROcodone/Acetaminophen 7.5/325 mg Tablet PO PRN (11:30)
[2022-01-26] MEDS ORDERED: Morphine 2 MG/ML VIAL SLOW IVP PRN (11:30)
[2022-01-26] MEDS ORDERED: diphenhydrAMINE 25 MG CAP PO PRN (11:30)
[2022-01-26] MEDS ORDERED: traMADol HCl 50 MG TAB PO PRN (11:30)
[2022-01-26] MEDS ORDERED: Acetaminophen/Codeine 30-300mg Tablet PO PRN (11:30)
[2022-01-26] MEDS ORDERED: Diazepam 5 MG TAB PO PRN (11:35)
[2022-01-26] MEDS ORDERED: hydrALAZINE 20 MG/ML VIAL SLOW IVP PRN (11:35)
[2022-01-26] MEDS ORDERED: Polyethylene Glycol 3350 17 GM Packet PO PRN (11:35)
[2022-01-26] MEDS ORDERED: PACU-Morphine 4MG/ML VIAL SLOW IVP PRN (11:44)
[2022-01-26] MEDS ORDERED: Morphine Sulfate 2 MG/ML SYRINGE SLOW IVP PRN (11:44)
[2022-01-26] MEDS ORDERED: Ondansetron HCl/PF 4 MG/2 ML Vial IVP PRN (11:44)
[2022-01-26] MEDS ORDERED: Promethazine HCl 25 MG/ML VIAL IVPB PRN (11:44)
[2022-01-26] MEDS ORDERED: HYDROmorphone 2 MG/ML VIAL SLOW IVP PRN (11:44)
[2022-01-26] MEDS ORDERED: Promethazine HCl 25 MG/ML VIAL IM PRN (11:44)
[2022-01-26] MEDS ORDERED: Fentanyl 100 MCG/2 ML VIAL ONE (11:58)
[2022-01-26] MEDS: Gabapentin 300 MG CAP PO SCH ×2 (14:31→20:43)
[2022-01-26] MEDS: HYDROcodone/Acetaminophen 7.5/325 mg Tablet PO PRN (14:32)
[2022-01-26] MEDS ORDERED: Diazepam 5 MG TAB PO SCH (14:45)
[2022-01-26] MEDS: CEFAZOLIN 2 GM in Sodium Chloride 0.9% 100 ML IVPB SCH (15:51)
[2022-01-26] MEDS: Sodium Chloride 0.9% 1,000 ML IV SCH (15:59)
[2022-01-26] MEDS: Atorvastatin Calcium 40 MG TAB PO SCH (20:42)
[2022-01-26] MEDS: Docusate 100 MG CAP PO SCH (20:42)
[2022-01-26] MEDS: Latanoprost 0.005% Ophth Soln 2.5 ml Bottle EA EYE SCH (21:47)
[2022-01-27] MEDS: CEFAZOLIN 2 GM in Sodium Chloride 0.9% 100 ML IVPB SCH ×3 (00:26→17:06)
[2022-01-27] MEDS: Sodium Chloride 0.9% 1,000 ML IV SCH ×4 (01:36→17:02)
[2022-01-27] MEDS: HYDROcodone/Acetaminophen 7.5/325 mg Tablet PO PRN ×2 (04:19→20:44)
[2022-01-27 07:46] LABS: #Lymphocytes 1.9 thou/uL (1.20-3.40); #Monocytes 0.8 thou/uL (0.11-0.59); #Neutrophils 6.8 thou/uL (1.40-6.50); %Basophils 0.1 % (0.0-1.0); %Eosinophils 0.1 % (0.0-10.0); %Lymphocytes 19.8 % (21.0-51.0); %Monocytes 8.6 % (0.0-10.0); %Neutrophils 71.3 % (42.0-75.0); Hemoglobin 11.4 g/dL (12.0-16.0); Mean Corpuscular HGB CONC 32.2 g/dL (32.0-36.0); Mean Corpuscular Hemoglobin 29.2 pg (27.0-31.0); Mean Corpuscular Volume 90.9 fL (78.0-98.0); Mean Platelet Volume 9.9 fL (7.4-10.4); Platelet Count 151 thou/uL (130-400); RBC Distribution Width 15.2 % (11.5-14.5); Red Blood Cell (RBC) Count 3.88 mill/uL (4.20-5.40); White Blood Cell (WBC) Count 9.6 thou/uL (4.8-10.8)
[2022-01-27 08:06] LABS: Anion Gap 15 mmol/L (10-20); BUN (Urea Nitrogen) 12 mg/dL (9.8-20.1); Calc. Creatinine Clearance 99 mL/min (70-130); Calcium 8.2 mg/dL (7.8-10.44); Carbon Dioxide 23 mmol/L (23-31); Chloride 107 mmol/L (98-107); Estimated GFR 76; Glucose 118 mg/dL (80-115); Potassium 3.5 mmol/L (3.5-5.1); Sodium 141 mmol/L (136-145)
[2022-01-27] MEDS: Amlodipine 5 MG TAB PO SCH (10:23)
[2022-01-27] MEDS: Gabapentin 300 MG CAP PO SCH ×3 (10:23→20:45)
[2022-01-27] MEDS: Docusate 100 MG CAP PO SCH ×2 (10:23→20:45)
[2022-01-27] MEDS: Brimonidine Tartrate 0.2% Ophth Soln 5 ml Bottle EA EYE SCH (11:45)
[2022-01-27] MEDS: Terbinafine 250 MG TAB PO SCH (11:47)
[2022-01-27] MEDS: Timolol 0.5% Ophth Soln 5 ml Bottle EA EYE SCH (12:01)
[2022-01-27] MEDS: Acetaminophen 325 MG TAB PO PRN (12:02)
[2022-01-27] MEDS: Atorvastatin Calcium 40 MG TAB PO SCH (20:45)
[2022-01-27] MEDS: Latanoprost 0.005% Ophth Soln 2.5 ml Bottle EA EYE SCH (20:51)
[2022-01-28] MEDS: CEFAZOLIN 2 GM in Sodium Chloride 0.9% 100 ML IVPB SCH ×2 (00:21→08:55)
[2022-01-28] MEDS: HYDROcodone/Acetaminophen 7.5/325 mg Tablet PO PRN (00:29)
[2022-01-28 05:08] LABS: Bacteria/HPF None Seen HPF (None Seen); RBC/HPF Greater than 50 HPF (0-3); Squamous Epithelial None Seen HPF (0-3); WBC/HPF 21-50 HPF (0-3); Yeast-Budding 1+ HPF (None Seen)
[2022-01-28] MEDS: Sodium Chloride 0.9% 1,000 ML IV SCH (08:55)
[2022-01-28] MEDS: Docusate 100 MG CAP PO SCH ×2 (08:56→19:58)
[2022-01-28] MEDS: Gabapentin 300 MG CAP PO SCH ×3 (08:56→19:59)
[2022-01-28] MEDS: Brimonidine Tartrate 0.2% Ophth Soln 5 ml Bottle EA EYE SCH (08:58)
[2022-01-28] MEDS: Terbinafine 250 MG TAB PO SCH (08:59)
[2022-01-28] MEDS: Amlodipine 5 MG TAB PO SCH (09:08)
[2022-01-28] MEDS: Timolol 0.5% Ophth Soln 5 ml Bottle EA EYE SCH (09:08)
[2022-01-28] MEDS: Acetaminophen 325 MG TAB PO PRN (16:22)
[2022-01-28] MEDS: Atorvastatin Calcium 40 MG TAB PO SCH (19:58)
[2022-01-28] MEDS: Latanoprost 0.005% Ophth Soln 2.5 ml Bottle EA EYE SCH (19:59)
[2022-01-29] MEDS: Sodium Chloride 0.9% 1,000 ML IV SCH (05:03)
[2022-01-29] MEDS: Brimonidine Tartrate 0.2% Ophth Soln 5 ml Bottle EA EYE SCH (08:14)
[2022-01-29] MEDS: Amlodipine 5 MG TAB PO SCH (08:14)
[2022-01-29] MEDS: Docusate 100 MG CAP PO SCH (08:16)
[2022-01-29] MEDS: Timolol 0.5% Ophth Soln 5 ml Bottle EA EYE SCH (08:16)
[2022-01-29] MEDS: Gabapentin 300 MG CAP PO SCH (08:16)
[2022-01-29] MEDS: Terbinafine 250 MG TAB PO SCH (08:59)
[2022-01-29] MEDS ORDERED: Sulfameth/Trimethoprim DS 800-160mg TAB PO SCH (09:00)
[2022-01-29 12:28] VITALS: BP 114/79; TEMP 98.6
== END 2022-01-29 14:05 | DRG 454 ==
LOC: SDC 06:03 → MSONC 12:59 → OBSVTOIN 01-27 07:50
PROVIDERS: ADMIT Surgery; ATTEND Surgery
PROC: 0SG30AJ Fusion of Lumbosacral Joint with Interbody Fusion Device, Posterior Approach, Anterior Column, Open Approach (ICD-10-PCS; principal; 2022-01-27)
PROC: 0SG3071 Fusion of Lumbosacral Joint with Autologous Tissue Substitute, Posterior Approach, Posterior Column, Open Approach (ICD-10-PCS; 2022-01-27)
DX: M43.16 Spondylolisthesis, lumbar region (principal); N39.0 Urinary tract infection, site not specified; M48.061 Spinal stenosis, lumbar region without neurogenic claudication; M54.16 Radiculopathy, lumbar region; Z88.8 Allergy status to other drugs, medicaments and biological substances
CPT/HCPCS: 36415; 36416; 71045; 76000; 80048; 81015; 85025; 85027; 85610; 85730; 86850; 86900; 86901; 87086; 87811; 93970; C1713; C1768; C1776; J0690; J1885; J2270; J2370; J2405; J2704; J3010; J3370; J3490; J7050; P9045

== ENCOUNTER 2022-03-11 13:14 | Outpatient (CLI) | payer OTHER, MEDICAID | END 2022-03-11 13:15 | disposition home or self-care (01) | LOC: BICRAD 13:14 | PROVIDERS: ATTEND Surgery | DX: M47.26 Other spondylosis with radiculopathy, lumbar region (principal); M25.562 Pain in left knee; Z98.1 Arthrodesis status | CPT/HCPCS: 72100 ==

== ENCOUNTER 2022-05-05 11:28 | Outpatient (CLI) | payer OTHER, MEDICAID | END 2022-05-05 11:29 | disposition home or self-care (01) | LOC: BICMAMMO 11:28 | PROVIDERS: ATTEND Nurse Practitioner Family | DX: Z12.31 Encounter for screening mammogram for malignant neoplasm of breast (principal); R92.1 Mammographic calcification found on diagnostic imaging of breast; R92.8 Other abnormal and inconclusive findings on diagnostic imaging of breast | CPT/HCPCS: 77063; 77067 ==

== ENCOUNTER 2022-07-12 11:48 | Outpatient (CLI) | payer OTHER, MEDICAID ==
[2022-07-12 13:23] LABS: Hemoglobin 12.4 g/dL (12.0-15.5); Mean Corpuscular HGB CONC 32.8 g/dL (32.0-36.0); Mean Corpuscular Hemoglobin 27.5 pg (27.0-33.0); Mean Corpuscular Volume 83.8 fl (81.6-98.3); Mean Platelet Volume 10.5 fl (7.4-10.4); Platelet Count 199 10x3/uL (150-450); RBC Distribution Width 15.8 % (11.5-14.5); Red Blood Cell (RBC) Count 4.51 10x6/uL (3.90-5.03); White Blood Cell (WBC) Count 7.3 10x3/uL (3.5-10.5)
[2022-07-12 13:28] LABS: INR-International Normal Ratio 0.9; Prothrombin Time 10.3 sec (9.5-12.1)
[2022-07-12 14:09] LABS: Anion Gap 11 mmol/L (10-20); BUN (Urea Nitrogen) 19 mg/dL (9.8-20.1); Calc. Creatinine Clearance 0 mL/min (70-130); Calcium 9.4 mg/dL (7.8-10.44); Carbon Dioxide 25 mmol/L (23-31); Chloride 106 mmol/L (98-107); Estimated GFR 74; Glucose 107 mg/dL (80-115); Potassium 3.9 mmol/L (3.5-5.1); Sodium 138 mmol/L (136-145)
[2022-07-12 14:37] LABS: Band 1 % (5-11); Eosinophils 2 % (0-10); Lymphocytes 30 % (21-51); Monocytes 12 % (0-10); Reactive Lymphocytes 7 % (0-10)
[2022-07-12 14:39] LABS: Neutrophil 47 % (42-75); Platelet Morphology Comment Appears Adequate
[2022-07-12 14:40] LABS: MDiff Complete? YES; RBC Morphology Normal
== END 2022-07-12 11:49 | disposition home or self-care (01) ==
LOC: LABBT 11:48
PROVIDERS: ATTEND Orthopaedic Surgery
DX: Z01.818 Encounter for other preprocedural examination (principal); M87.052 Idiopathic aseptic necrosis of left femur
CPT/HCPCS: 80048; 85025; 85610; 87081; 93005; 93010

== ENCOUNTER 2022-07-13 06:11 | Inpatient (IN) | payer OTHER, MEDICAID ==
[2022-07-09 14:38] VITALS: BMI 27.4
[2022-07-13] MEDS ORDERED: Tranexamic Acid 1,000 MG/10 ML VIAL ONE (06:22)
[2022-07-13] MEDS ORDERED: Bupivacaine PF 0.5% 30 ML VIAL ONE (06:22)
[2022-07-13] MEDS ORDERED: Vancomycin 1 GM/200 ML (FROZEN) BAG ONE (06:22)
[2022-07-13] MEDS ORDERED: Sodium Chloride 0.9% 100 ML ONE ×2 (06:22→06:56)
[2022-07-13] MEDS ORDERED: fentaNYL PF 100 MCG/2 ML SYRINGE ONE (06:23)
[2022-07-13] MEDS ORDERED: Propofol 1,000 MG/100 ML VIAL IV ONE (06:23)
[2022-07-13] MEDS ORDERED: HYDROmorphone 2 MG/ML VIAL SLOW IVP PRN (06:47)
[2022-07-13] MEDS ORDERED: Ondansetron HCl/PF 4 MG/2 ML Vial IVP PRN (06:47)
[2022-07-13] MEDS ORDERED: Meperidine HCl/PF 25 MG/ML VIAL SLOW IVP PRN (06:47)
[2022-07-13] MEDS ORDERED: Promethazine HCl 25 MG/ML VIAL IM PRN ×2 (06:47→06:53)
[2022-07-13] MEDS ORDERED: Dexamethasone 20 MG/5 ML VIAL ONE (06:50)
[2022-07-13] MEDS ORDERED: Lidocaine 1% PF 5 ML VIAL ONE (06:50)
[2022-07-13] MEDS ORDERED: PROPOFOL 200 MG/20 ML VIAL ONE (06:50)
[2022-07-13] MEDS ORDERED: PHENYLEPHRINE-NS 100 MCG/ML 10 ML SYRINGE ONE (06:50)
[2022-07-13] MEDS ORDERED: Ondansetron PF 4 MG/2 ML Vial ONE (06:50)
[2022-07-13] MEDS ORDERED: Ondansetron PF 4 MG/2 ML Vial IVP PRN (06:53)
[2022-07-13] MEDS ORDERED: Fentanyl 100 MCG/2 ML VIAL SLOW IVP PRN (06:53)
[2022-07-13] MEDS ORDERED: Zolpidem Tartrate 5 MG TAB PO PRN (06:53)
[2022-07-13] MEDS ORDERED: traMADol HCl 50 MG TAB PO PRN (06:53)
[2022-07-13] MEDS ORDERED: diphenhydrAMINE 25 MG CAP PO PRN ×2 (06:53→06:55)
[2022-07-13] MEDS ORDERED: Acetaminophen 325 MG TAB PO PRN (06:53)
[2022-07-13] MEDS ORDERED: Cyclobenzaprine 10 MG TAB PO PRN (06:55)
[2022-07-13] MEDS ORDERED: CEFAZOLIN 2 GM VIAL ONE (06:56)
[2022-07-13 07:05] LABS: SARS-CoV-2 NAA Rapid Test Not Detected (NotDetected)
[2022-07-13] MEDS ORDERED: Ropivacaine 0.5% HCl/PF (150 MG/30 ML VIAL) ONE (08:09)
[2022-07-13] MEDS ORDERED: Non-Formulary Item 1 EACH (Latanoprost/Pf [Latanoprost 0.005% Eye Drop] 7.5 ML Drops) R EYE SCH (09:00)
[2022-07-13] MEDS: Latanoprost 0.005% Ophth Soln 2.5 ml Bottle R EYE SCH (09:00)
[2022-07-13] MEDS: Brimonidine Tartrate 0.2% Ophth Soln 5 ml Bottle L EYE SCH (09:00)
[2022-07-13] MEDS: Timolol 0.5% Ophth Soln 5 ml Bottle L EYE SCH (09:00)
[2022-07-13] MEDS: Senokot S 8.6-50 MG TAB PO SCH ×2 (10:27→20:49)
[2022-07-13] MEDS: Ferrous Gluconate 324 MG TAB PO SCH ×2 (10:27→20:50)
[2022-07-13] MEDS: Multivitamin W/ Minerals 1 TAB PO SCH (10:27)
[2022-07-13] MEDS: HYDROcodone/Acetaminophen 10/325 mg Tablet PO PRN (10:44)
[2022-07-13] MEDS: Aspirin 81 mg Enteric Coated Tablet PO SCH ×2 (10:44→20:49)
[2022-07-13] MEDS: Terbinafine 250 MG TAB PO SCH (10:45)
[2022-07-13] MEDS: Gabapentin 300 MG CAP PO SCH ×3 (10:45→20:49)
[2022-07-13] MEDS: Atorvastatin Calcium 40 MG TAB PO SCH (10:45)
[2022-07-13] MEDS: Amlodipine 5 MG TAB PO SCH (10:45)
[2022-07-13] MEDS: Sodium Chloride 0.9% 1,000 ML IV SCH ×3 (10:46→23:48)
[2022-07-13] MEDS: Ketorolac Tromethamine 30 MG/ML VIAL IVP SCH ×2 (14:09→20:50)
[2022-07-13] MEDS: CEFAZOLIN 2 GM in Sodium Chloride 0.9% 100 ML IVPB SCH ×2 (14:09→20:50)
[2022-07-13] MEDS: traMADol HCl 50 MG TAB PO PRN (20:54)
[2022-07-14] MEDS: traMADol HCl 50 MG TAB PO PRN (03:13)
[2022-07-14] MEDS: Ketorolac Tromethamine 30 MG/ML VIAL IVP SCH ×3 (05:26→20:26)
[2022-07-14 06:22] LABS: Hemoglobin 11.4 g/dL (12.0-16.0); Mean Corpuscular HGB CONC 33.2 g/dL (32.0-36.0); Mean Corpuscular Hemoglobin 28.7 pg (27.0-31.0); Mean Corpuscular Volume 86.5 fl (78.0-98.0); Mean Platelet Volume 9.1 fL (7.4-10.4); Platelet Count 187 10x3/uL (130-400); RBC Distribution Width 14.9 % (11.5-14.5); Red Blood Cell (RBC) Count 3.97 mill/uL (4.20-5.40); White Blood Cell (WBC) Count 12.9 10x3/uL (4.8-10.8)
[2022-07-14] MEDS: Ferrous Gluconate 324 MG TAB PO SCH ×2 (09:18→20:21)
[2022-07-14] MEDS: Aspirin 81 mg Enteric Coated Tablet PO SCH ×2 (09:18→20:21)
[2022-07-14] MEDS: Atorvastatin Calcium 40 MG TAB PO SCH (09:19)
[2022-07-14] MEDS: Senokot S 8.6-50 MG TAB PO SCH ×2 (09:19→20:21)
[2022-07-14] MEDS: Gabapentin 300 MG CAP PO SCH ×3 (09:20→20:21)
[2022-07-14] MEDS: Amlodipine 5 MG TAB PO SCH (09:20)
[2022-07-14] MEDS: Multivitamin W/ Minerals 1 TAB PO SCH (09:20)
[2022-07-14] MEDS: HYDROcodone/Acetaminophen 10/325 mg Tablet PO PRN ×2 (09:22→20:25)
[2022-07-14] MEDS: Terbinafine 250 MG TAB PO SCH (09:50)
[2022-07-14] MEDS: Brimonidine Tartrate 0.2% Ophth Soln 5 ml Bottle L EYE SCH (09:50)
[2022-07-14] MEDS: Latanoprost 0.005% Ophth Soln 2.5 ml Bottle R EYE SCH (09:51)
[2022-07-14] MEDS: Timolol 0.5% Ophth Soln 5 ml Bottle L EYE SCH (14:37)
[2022-07-14] MEDS: Sodium Chloride 0.9% 1,000 ML IV SCH ×2 (14:38→22:08)
[2022-07-15] MEDS: Ketorolac Tromethamine 30 MG/ML VIAL IVP SCH ×2 (05:38→16:33)
[2022-07-15] MEDS: HYDROcodone/Acetaminophen 10/325 mg Tablet PO PRN ×3 (09:05→20:36)
[2022-07-15] MEDS: Terbinafine 250 MG TAB PO SCH (09:48)
[2022-07-15] MEDS: Ferrous Gluconate 324 MG TAB PO SCH ×2 (09:50→20:36)
[2022-07-15] MEDS: Aspirin 81 mg Enteric Coated Tablet PO SCH ×2 (09:50→20:36)
[2022-07-15] MEDS: Senokot S 8.6-50 MG TAB PO SCH ×2 (09:51→20:37)
[2022-07-15] MEDS: Multivitamin W/ Minerals 1 TAB PO SCH (09:51)
[2022-07-15] MEDS: Amlodipine 5 MG TAB PO SCH (09:51)
[2022-07-15] MEDS: Atorvastatin Calcium 40 MG TAB PO SCH (09:52)
[2022-07-15] MEDS: Gabapentin 300 MG CAP PO SCH ×3 (09:52→20:36)
[2022-07-15] MEDS: Brimonidine Tartrate 0.2% Ophth Soln 5 ml Bottle L EYE SCH (09:53)
[2022-07-15] MEDS: Latanoprost 0.005% Ophth Soln 2.5 ml Bottle R EYE SCH (09:53)
[2022-07-15] MEDS: Timolol 0.5% Ophth Soln 5 ml Bottle L EYE SCH (09:53)
[2022-07-15] MEDS: Sodium Chloride 0.9% 1,000 ML IV SCH ×2 (09:53→19:31)
[2022-07-16] MEDS: Sodium Chloride 0.9% 1,000 ML IV SCH ×2 (03:59→16:32)
[2022-07-16] MEDS: HYDROcodone/Acetaminophen 10/325 mg Tablet PO PRN ×2 (08:29→20:51)
[2022-07-16] MEDS: Amlodipine 5 MG TAB PO SCH (08:30)
[2022-07-16] MEDS: Latanoprost 0.005% Ophth Soln 2.5 ml Bottle R EYE SCH (08:30)
[2022-07-16] MEDS: Ferrous Gluconate 324 MG TAB PO SCH ×2 (08:30→20:45)
[2022-07-16] MEDS: Brimonidine Tartrate 0.2% Ophth Soln 5 ml Bottle L EYE SCH (08:30)
[2022-07-16] MEDS: Aspirin 81 mg Enteric Coated Tablet PO SCH ×2 (08:30→20:44)
[2022-07-16] MEDS: Atorvastatin Calcium 40 MG TAB PO SCH (08:30)
[2022-07-16] MEDS: Timolol 0.5% Ophth Soln 5 ml Bottle L EYE SCH (08:30)
[2022-07-16] MEDS: Senokot S 8.6-50 MG TAB PO SCH ×2 (08:30→20:44)
[2022-07-16] MEDS: Terbinafine 250 MG TAB PO SCH (08:30)
[2022-07-16] MEDS: Multivitamin W/ Minerals 1 TAB PO SCH (08:31)
[2022-07-16] MEDS: Gabapentin 300 MG CAP PO SCH ×3 (08:31→20:45)
[2022-07-17] MEDS: Sodium Chloride 0.9% 1,000 ML IV SCH ×2 (03:24→09:42)
[2022-07-17] MEDS: Senokot S 8.6-50 MG TAB PO SCH (08:04)
[2022-07-17] MEDS: Aspirin 81 mg Enteric Coated Tablet PO SCH (08:04)
[2022-07-17] MEDS: Ferrous Gluconate 324 MG TAB PO SCH (08:05)
[2022-07-17] MEDS: Atorvastatin Calcium 40 MG TAB PO SCH (08:05)
[2022-07-17] MEDS: Gabapentin 300 MG CAP PO SCH (08:05)
[2022-07-17] MEDS: Multivitamin W/ Minerals 1 TAB PO SCH (08:05)
[2022-07-17] MEDS: Terbinafine 250 MG TAB PO SCH (08:05)
[2022-07-17] MEDS: Brimonidine Tartrate 0.2% Ophth Soln 5 ml Bottle L EYE SCH (08:06)
[2022-07-17] MEDS: Latanoprost 0.005% Ophth Soln 2.5 ml Bottle R EYE SCH (08:07)
[2022-07-17] MEDS: Amlodipine 5 MG TAB PO SCH (08:08)
[2022-07-17] MEDS: Timolol 0.5% Ophth Soln 5 ml Bottle L EYE SCH (08:08)
[2022-07-17 11:51] VITALS: BP 116/77; TEMP 98
== END 2022-07-17 14:45 | disposition home health service (06) | DRG 470 ==
LOC: SDC 06:11 → SJJU 10:01 → SDC 10:41 → OBSVTOIN 07-15 06:45
PROVIDERS: ADMIT Orthopaedic Surgery; ATTEND Orthopaedic Surgery
PROC: 0SRB02Z Replacement of Left Hip Joint with Metal on Polyethylene Synthetic Substitute, Open Approach (ICD-10-PCS; principal; 2022-07-13)
DX: M87.052 Idiopathic aseptic necrosis of left femur (principal); H40.9 Unspecified glaucoma; H54.8 Legal blindness, as defined in USA; Z98.890 Other specified postprocedural states; Z98.1 Arthrodesis status; Z79.899 Other long term (current) drug therapy; Z83.3 Family history of diabetes mellitus; Z87.891 Personal history of nicotine dependence; Z88.8 Allergy status to other drugs, medicaments and biological substances; Z98.41 Cataract extraction status, right eye; Z20.822 Contact with and (suspected) exposure to COVID-19
CPT/HCPCS: 36415; 80048; 85025; 85027; 85610; 87081; 93005; 93010; 96365; 96375; 96376; C1776; G0378; J1100; J1885; J2405; J2704; J2795; J3370-JW; J3490; J7050; S0020; U0002